=== PATIENT | male | born 2000 | race Two or more races ===

== ENCOUNTER 2025-03-16 13:02 | Emergency (ER) | payer MEDICAID ==
[~2025-03-16] VITALS: Ht 190.5 cm; Wt 84.4 kg
[2025-03-16] MEDS ORDERED: ONDANSETRON HCL/PF 4 MG/2 ML VIAL ONE (14:47)
[2025-03-16] MEDS: IV NS 0.9% 1,000 ML BAG IV ONE (15:00)
[2025-03-16] MEDS: ONDANSETRON HCL/PF 4 MG/2 ML VIAL IVP ONE (15:01)
[2025-03-16 15:13] LABS: PLATELET COUNT (AUTO) 200 K/uL (150-450); RED BLOOD CELL COUNT(AUTO) 4.97 MIL/uL (4.5-6.0); RED CELL DISTRIBUTION WIDTH 12.6 % (11.5-15.0); WHITE BLOOD COUNT (AUTO) 7.9 K/uL (4.3-11.0)
[2025-03-16 15:20] LABS: CALCIUM, SERUM 9.0 mg/dL (8.5-10.1); CREATININE 0.9 mg/dL (0.6-1.3); SODIUM SERUM 139.0 mmol/L (136-145); UREA NITROGEN, BLOOD 8.0 mg/dL (7-18)
[2025-03-16 15:26] LABS: ASPARTATE AMINOTRANSFERASE 33.0 U/L (15-37); TOTAL PROTEIN, SERUM 8.2 g/dL (6.4-8.2)
[2025-03-16] MEDS ORDERED: ONDA4TAB5 PO (15:33)
[2025-03-16 15:58] VITALS: BP 138/92; TEMP 98.1; O2SAT 99
== END 2025-03-16 15:59 | disposition home or self-care (01) ==
LOC: ER 13:10
DX: R11.2 Nausea with vomiting, unspecified (principal); R19.7 Diarrhea, unspecified; A05.9 Bacterial foodborne intoxication, unspecified
CPT/HCPCS: 99283; 96374; 96361; 85025; 80048; 83690; 80076; 36415; J2405; J7030